=== PATIENT | male | born 1970 | race Hispanic/Latino ===

== ENCOUNTER 2023-08-29 07:11 | Emergency (ER) | payer OTHER, SELFPAY ==
[2023-08-29 07:14] VITALS: BP 144/90
[2023-08-29 07:21] LABS: Glucose - Point of Care 153 mg/dl (70-99)
[2023-08-29 07:45] VITALS: BMI 27.3
[2023-08-29 07:51] VITALS: BP 132/75
[2023-08-29 07:58] LABS: % Basophils 0.4 % (0-2); % Eosinophils 1.9 % (0-6); % Immature Granulocytes 0.9 % (0-0.5); % Lymphocytes 41.8 % (20.5-51.1); % Monocytes 5.2 % (1.7-9.3); % Neutrophils 49.8 % (42.2-75.2); Absolute Eosinophils 0.2 10^3/uL (0-0.7); Absolute Immature Granulocytes 0.1 10^3/uL (0-0.05); Absolute Lymphocytes 3.2 10^3/uL (1.2-3.4); Absolute Monocytes 0.4 10^3/uL (0.1-0.6); Absolute Neutrophils 3.8 10^3/uL (1.4-6.5); Hemoglobin 15.2 g/dL (13.0-18.0); Mean Corp Hgb Conc. 34.5 g/dL (33.0-37.0); Mean Corpuscular Hgb 29.9 pg (27.0-31.0); Mean Corpuscular Volume 86.6 fL (80.0-94.0); Mean Platelet Volume 10.3 fL (7.4-10.4); Nucleated Red Blood Cells % 0 % (-); Platelet Count 212 10^3/uL (130-400); Red Blood Cell Count 5.08 10^6/uL (4.70-6.10); Red Cell Dist. Width 12.6 % (11.5-14.5); White Blood Cell Count 7.7 10^3/uL (4.8-10.8)
[2023-08-29 08:00] VITALS: BP 109/94
[2023-08-29 08:08] LABS: INR 1.02; PT 13.2 Sec (11.4-14.6)
[2023-08-29 08:09] LABS: APTT 27.1 Sec (23.4-35.0)
--- NOTE | 2023-08-29 08:09 | ED.GENMED ---
History of Present Illness
General
Chief Complaint: Numbness
Source: patient
Exam Limitations: none
Time Seen by Provider: 08/29/23 07:50
Travel History
Have you had any contact with someone who has COVID-19?: No
Do you have any symptoms of coronavirus? Fever > 100 degrees, chills, cough, shortness of breath, sore throat, loss of taste or smell, muscle aches, or headache?: No
History of Present Illness
History of Present Illness:
53-year-old male with history of [id number] diabetes presents to the onset of numbness to his tongue and face followed by chest pressure and left hand numbness. This was intermittent since this 6 this morning. Currently he feels normal.
He had a headache last evening up to 600 mg of ibuprofen for. Denies back pain pleuritic pain or recent travel. No leg swelling or calf pain. No other complaints at this time
Phy Exam
Physical Exam
Physical Exam:
General: Well-appearing male no acute respiratory distress
HEENT: Normocephalic atraumatic
Heart: Regular rate and rhythm no murmurs
Lungs: Clear no wheeze or rales
Abdomen: Soft nontender nondistended no guarding or rebound
Extremities: No cyanosis
Course
Orders/Labs/Results
Orders:
Orders
08/29/23 07:45
Electrocardiogram (*1) Urgent
Reason for Study: Fatigue / Weakness
EKG- Treatment ONCE
08/29/23 07:52
Complete Blood Count/With Diff Urgent
Comprehensive Metabolic Panel Urgent
Protime/PTT Urgent
Troponin I Urgent
08/29/23 08:12
CR Chest - 2 Views Urgent
Comment:
Reason For Exam: chest pain
08/29/23 10:55
Troponin I Urgent
Abnormal Lab Results
08/29/23 08/29/23
07:20 07:52
Abs Immat Gran (auto) 0.1 H 10^3/uL
(0-0.05)
Immature Gran % 0.9 H %
(0-0.5)
Creatinine 0.6 L mg/dL
(0.7-1.3)
Glucose 176 H mg/dl
(70-99)
POC Glucose 153 H mg/dl
(70-99)
08/29/23 07:52
08/29/23 07:52
Vital Signs
Initial and Last Documented VS:
Initial Vital Signs
Temp Pulse Resp BP Pulse Ox
97.9 F 62 20 144/90 100
08/29/23 07:14 08/29/23 07:14 08/29/23 07:14 08/29/23 07:14 08/29/23 07:14
Last Documented Vital Signs
Temp Pulse Resp BP Pulse Ox
97.9 F 61 18 135/71 97
08/29/23 07:14 08/29/23 11:00 08/29/23 11:00 08/29/23 08:47 08/29/23 11:00
MDM/Problems Addressed
Differential Diagnosis Includes:
Chest pressure facial numbness left hand numbness. Consider ACS versus paresthesias versus hyperventilation. Fingerstick blood sugar 153. Symptoms are both sides do not suspect CVA. No symptoms to suggest PE. EKG was personally reviewed
demonstrates normal sinus rhythm without ischemic changes troponin pending.
*Critical Care Note
Total Time (30-74mins, 75-104mins- exclusive of procedures): Not Applicable
Update Note
Update Note:
Repeat and initial troponin is both negative. Chest x-ray clear the patient remains symptom-free nontoxic with stable vital signs. Do not suspect PE ACS or dissection. Will follow-up with cardiology.
ED Attending Note
-
Portions of this chart may have been created with voice recognition software.� Occasional wrong word or��sound alike� substitutions may have occurred due to the inherent limitations of voice recognition software.
Discharge Plan
Departure
Patient Disposition: Home (Routine Discharge)
Date of Disposition: 08/29/23
Time of Disposition: 12:08
Patient with high blood pressure during this ER visit?: No
Discharge Problem:
Chest pain
Instructions: Chest Pain DCA Follow Up
Referrals:
Floyd Noriega DO [Family Provider] -
Activity Restrictions/Additional Instructions:
Please return here for any worsening symptoms. Cardiology team should call you to set up an appointment.
Interventions
Interventions:
*Risk Screen - Suicide Last Done: 08/29/23 07:14
*General Assessment Last Done: 08/29/23 07:14
*Neglect/Abuse Screening Last Done: 08/29/23 07:45
ED- Fall Risk Assessment Last Done: 08/29/23 07:56
*ED COVID-19 Vaccine History Last Done: 08/29/23 07:45
ED- Neurological Assessment Last Done: 08/29/23 07:56
Discharge Date and Time
Print Language: RUSSIAN
[2023-08-29 08:10] LABS: ALT (SGPT) 44 U/L (0-50); AST (SGOT) 33 U/L (17-59); Albumin 4.3 g/dl (3.5-5.0); Alkaline Phosphatase 86 U/L (38-126); Blood Urea Nitrogen 19 mg/dl (9-20); Carbon Dioxide 25 mmol/L (22-30); Chloride 106 mmol/L (98-107); Estimated Creatinine Clearance > 125 ml/min; Glucose 176 mg/dl (70-99); Potassium 4.3 mmol/L (3.5-5.1); Sodium 138 mmol/L (135-145); Total Bilirubin 1.1 mg/dl (0.2-1.3); Total Protein 7.2 g/dl (6.3-8.2); eGFR > 60.00
[2023-08-29 08:21] LABS: Troponin I < 0.012 ng/ml
[2023-08-29 08:47] VITALS: BP 135/71
[2023-08-29 11:27] LABS: Troponin I < 0.012 ng/ml
[2023-08-29 12:13] VITALS: BP 136/67
== END 2023-08-29 12:14 | disposition home or self-care (01) ==
LOC: EMR 07:11
PROVIDERS: Physician Assistant; EMERGENCY PHYSICIAN Emergency Medicine; FAMILY PHYSICIAN Family Medicine
DX: R07.89 Other chest pain (principal); R20.0 Anesthesia of skin; R51.9 Headache, unspecified
CPT/HCPCS: 99285; 71046; 80053; 82962; 84484; 85025; 85610; 85730; 93005